=== PATIENT | female | born 1995 | race Caucasian/White ===

== ENCOUNTER 2024-06-12 09:06 | Emergency (ER) | payer OTHER, SELFPAY ==
[2024-06-12 09:11] VITALS: BP 129/83; PULSE 78; RESP 16; TEMP 35.9; O2SAT 99; BMI 25.1
--- NOTE | 2024-06-12 09:49 | ED.SKABFB ---
HPI - Skin/Abscess/Foreign Bdy General Chief complaint: Skin/Abscess/Foreign Body Stated complaint: ?abcess on chin Time Seen by Provider: 06/12/24 09:21 Source: patient Mode of arrival: ambulatory Limitations: no limitations History of Present Illness HPI narrative: Patient is a 28-year-old female who presents emergency department concern for an abscess to her chin. Reports onset 2 days ago. Thought that it may be an ingrown hair or a pimple. She attempted to exclude that the area to drain it but only got out a small amount of pus. The area continues to be very painful and is having swelling she is noted to for submandibular region. She denies any fevers, chills, flu-like symptoms. She has been applying warm compresses without much improvement Related Data Previous Rx's ?Medication ?Instructions ?Recorded cephalexin 500 mg capsule 500 mg PO TID #21 caps 06/12/24 mupirocin 2 % topical ointment 1 appl topical BID #15 grams 06/12/24 Allergies Allergy/AdvReac Type Severity Reaction Status Date / Time No Known Allergies Allergy Verified 06/12/24 09:14 Review of Systems Review of Systems: Yes all other systems are reviewed and are negative [facility] Past Medical History Attestation statement: The following information was validated with the patient. Source: old records reviewed Social History Social History Advance Directives: No Advance Directives Information Provided: No Physical Exam Vital Signs: Vital Signs: Last Vital Signs Temp 96.7 F L 06/12/24 09:11 Pulse 78 06/12/24 09:11 Resp 16 06/12/24 09:11 BP 129/83 06/12/24 09:11 Pulse Ox 99 06/12/24 09:11 O2 Del Method Room Air 06/12/24 09:11 BMI result Body Mass Index 25.1 Appearance: Alert.?Oriented to person, place and time. No acute distress.?Normal affect. Eyes: Pupils equal, round and reactive to light.? ENT: Pharynx normal.??Palate is soft. Neck: Normal inspection.? Neck supple.?? CVS: Heart sounds normal. Normal heart rate and rhythm.? Pulses normal.?? Respiratory: No respiratory distress.? Lung sounds clear to auscultation bilaterally?? Skin: Skin warm and dry.? Normal skin color.? Scapular lesion to the left lower chin surrounding induration and erythema, no fluctuance. Single palpable firm lymph node to the submandibular region just below it. ? Extremities: No lower extremity edema.? Neuro: Moves all extremities spontaneously. Sensation intact bilaterally. Ambulates with normal steady gait. Medical Decision Making Medical Decision Making MDM Narrative: Patient is a 28-year-old female who presents emergency department for evaluation. On her left lower chin she has a scabbed lesion after having picked at the area to drain pus. There is surrounding erythema and lymphadenopathy to the submandibular region corresponding. There is no fluctuance, does not appear amenable to any incision and drainage at this time. Discussed conservative treatment, NSAID, warm moist compress, antibiotic, and follow-up with PCP for re-evaluation. Discussed worrisome signs and symptoms that would warrant re-evaluation in the emergency department. Currently she is nontoxic, afebrile, no distress. No signs of systemic toxicity. Stable for discharge. Differential Diagnosis Differential Diagnoses: The differential diagnosis associated with the presentation includes (See narrative above) External Record Review External record reviewed: Outpatient record Prescription Management I considered prescription management with: Pain Medication and Antibiotic Discharge Plan Discharge Clinical Impression: Cellulitis Patient Disposition: Home, Self-Care Instructions: Cellulitis (ED), Warm Compress or Soak (ED) Additional Instructions: As discussed, continue applying warm moist compresses to the area for 10-15 minutes 3-4 times daily. Avoid picking at the skin surface or squeezing at the skin as this may introduce additional bacteria below the skin surface. You can take ibuprofen 200 mg, 3 tablets (600mg) every 6-8 hours as needed for pain, in addition to Tylenol 500 mg, 2 tablets (1,000mg) every 4-6 hours as needed for pain, but not to exceed 3 doses daily (3,000mg).? Complete the entire course of antibiotics as prescribed. Follow-up with your primary care doctor. Prescriptions: New cephalexin 500 mg capsule 500 mg PO TID Qty: 21 0RF mupirocin 2 % ointment 1 appl topical BID Qty: 15 0RF Print Language: Chinese
[2024-06-12 10:19] VITALS: BP 149/77; PULSE 68; RESP 16; TEMP 36.8; O2SAT 97
[2024-06-12 10:41] VITALS: BP 149/77; PULSE 68; RESP 16; TEMP 36.8; O2SAT 97
== END 2024-06-12 10:42 | disposition home or self-care (01) ==
PROVIDERS: Emergency Provider Emergency Medicine; PCP Psychiatry & Neurology Psychiatry
DX: L03.211 Cellulitis of face (principal); L02.01 Cutaneous abscess of face
CPT/HCPCS: 99282; 99283